=== PATIENT | male | born 1950 | race Caucasian/White ===

== ENCOUNTER → 2020-12-25 | Outpatient (CLI) | payer OTHER ==
[2020-12-25 14:20] LABS: BUN/CREATININE RATIO 14 (0-10)
[2020-12-26 08:14] LABS: HCV AB <0.1 (0.0-0.9); RHEUMATOID ARTHRITIS FACTOR <10.0 IU/mL (0.0-13.9)
[2020-12-26 10:14] LABS: HBSAG SCREEN Negative (Negative); HEP B CORE AB, TOT Negative (Negative)
[2020-12-26 16:12] LABS: ANGIOTENSIN-CONVERTING ENZYME 59 U/L (14-82)
== END ==
LOC: LAB 11:48
PROVIDERS: Nurse Practitioner Family
DX: Z11.59 Encounter for screening for other viral diseases (principal); M79.673 Pain in unspecified foot; M25.50 Pain in unspecified joint; M79.10 Myalgia, unspecified site; Z79.899 Other long term (current) drug therapy
CPT/HCPCS: 36415; 73630; 80053; 82164; 82550; 83520; 85652; 86140; 86200; 86431; 86704; 86803; 87340

== ENCOUNTER → 2021-04-08 | Outpatient (CLI) | payer OTHER ==
[2021-04-09 08:15] LABS: C-REACTIVE PROTEIN, QUANT 3 mg/L (0-10); RHEUMATOID ARTHRITIS FACTOR <10.0 IU/mL (<14.0)
[2021-04-09 16:16] LABS: ANGIOTENSIN-CONVERTING ENZYME 48 U/L (14-82)
[2021-04-09 17:10] LABS: ATYPICAL PANCA <1:20 titer (Neg:<1:20); CYTOPLASMIC (C-ANCA) <1:20 titer (Neg:<1:20); PERINUCLEAR (P-ANCA) <1:20 titer (Neg:<1:20)
== END ==
LOC: LAB 11:23
PROVIDERS: Family Medicine
DX: M35.09 Sjogren syndrome with other organ involvement (principal); M35.00 Sjogren syndrome, unspecified; J84.9 Interstitial pulmonary disease, unspecified; M25.50 Pain in unspecified joint
CPT/HCPCS: 36415; 82164; 83520; 85652; 86140; 86200; 86256; 86431